=== PATIENT | female | born 1995 | race Caucasian/White ===

== ENCOUNTER 2025-06-02 03:03 | Inpatient (IN) | payer BC ==
[2025-06-02] MEDS ORDERED: Methylergonovine 0.2 MG/ML VIAL IM PRN (03:41)
[2025-06-02] MEDS ORDERED: Diphenoxylate HCl/Atropine Tablet PO PRN ×2 (03:41)
[2025-06-02] MEDS ORDERED: Carboprost 250 MCG/ML AMP IM PRN (03:41)
[2025-06-02] MEDS ORDERED: Ondansetron PF 4 MG/2 ML Vial IVP PRN (03:41)
[2025-06-02] MEDS ORDERED: Ibuprofen 800 MG TAB PO PRN (03:41)
[2025-06-02] MEDS ORDERED: Lidocaine 1% (PF) 30 ML VIAL SC PRN (03:41)
[2025-06-02] MEDS ORDERED: Tranexamic Acid 1,000 MG/10 ML VIAL IVP PRN (03:41)
[2025-06-02] MEDS ORDERED: Oxytocin 30 units/NS 500 ML 500 ML IV SCH (03:45)
[2025-06-02 03:55] LABS: Hematocrit 39.7 % (34.9-44.5); Hemoglobin 13.8 g/dL (12.0-15.5); Mean Corpuscular Hemoglobin 29.7 pg (27.0-33.0); Mean Corpuscular Volume 85.4 fL (81.6-98.3); Platelet Count 260 10x3/uL (150-450); Red Blood Cell (RBC) Count 4.65 10x6/uL (3.90-5.03); White Blood Cell (WBC) Count 12.73 10x3/uL (3.5-10.5)
[2025-06-02 04:37] LABS: Syphilis Antibody Index 0.10 S/CO (<1.00 Non-Reactive)
[2025-06-02 04:38] LABS: Hep B Surf Ag - L&D Non-Reactive S/CO (NonReactive)
[2025-06-02] MEDS ORDERED: Preparation H Ointment 28 GM TUBE PR PRN (05:00)
[2025-06-02] MEDS ORDERED: Milk Of Magnesia 30 ML UDCUP PO PRN (05:00)
[2025-06-02] MEDS ORDERED: Lanolin Ointment 7 GM TUBE TOP PRN (05:00)
[2025-06-02] MEDS ORDERED: diphenhydrAMINE 25 MG CAP PO PRN (05:00)
[2025-06-02] MEDS ORDERED: Benzocaine-Menthol 82.5 ML CAN TOP PRN (05:00)
[2025-06-02] MEDS ORDERED: Boostrix 0.5 ML (Tdap) VIAL (>/=7 yrs of age) IM ONE (05:00)
[2025-06-02 05:22] VITALS: BMI 31.4
[2025-06-02] MEDS: hydrALAZINE 20 MG/ML VIAL SLOW IVP PRN (05:31)
[2025-06-02] MEDS: Magnesium Sulfate 20 gm/500 ml 20 GM/500 ML BAG ONE (05:41)
[2025-06-02] MEDS ORDERED: Calcium Gluc 4.6 MEQ/10 ML (100 MG/ML) SLOW IVP PRN (06:00)
[2025-06-02] MEDS ORDERED: hydrALAZINE 20 MG/ML VIAL SLOW IVP PRN ×2 (06:00)
[2025-06-02] MEDS: NIFEdipine XL 30 MG ER.TAB PO SCH (12:13)
[2025-06-02] MEDS: Ibuprofen 800 MG TAB PO SCH (13:12)
[2025-06-02] MEDS: Magnesium Sulfate 20 gm/500 ml 20 GM/500 ML BAG IVPB PRN (14:32)
[2025-06-02] MEDS: Oxytocin 30 units/NS 500 ML 500 ML ONE (19:27)
[2025-06-02] MEDS: Ferrous Sulfate 325 MG TAB PO SCH (19:27)
[2025-06-02] MEDS: Magnesium Sulfate 20 gm/500 ml 4 GM/100 ML BAG IVPB ONE (19:27)
[2025-06-03] MEDS: Acetaminophen 500 MG TAB PO PRN (00:03)
[2025-06-03 00:50] LABS: Magnesium 6.3 mg/dL (1.6-2.6)
[2025-06-03 06:06] LABS: Hematocrit 38.8 % (34.9-44.5); Hemoglobin 13.1 g/dL (12.0-15.5); Mean Corpuscular Hemoglobin 30.0 pg (27.0-33.0); Mean Corpuscular Volume 88.8 fL (81.6-98.3); Platelet Count 224 10x3/uL (150-450); Red Blood Cell (RBC) Count 4.37 10x6/uL (3.90-5.03); White Blood Cell (WBC) Count 12.82 10x3/uL (3.5-10.5)
[2025-06-03 08:00] LABS: ALT (SGPT) 14 U/L (Less than 34); AST (SGOT) 35 U/L (11-34); Albumin 3.0 g/dL (3.1-4.5); Alkaline Phosphatase 108 U/L (40-110); Anion Gap 13 mmol/L (10-20); BUN (Urea Nitrogen) 8 mg/dL (7.0-18.7); Bilirubin, Total 0.1 mg/dL (0.3-1.2); Calc. Creatinine Clearance 163 mL/min (70-130); Calcium 7.0 mg/dL (7.8-10.44); Carbon Dioxide 20 mmol/L (22-29); Chloride 105 mmol/L (98-107); Globulin 3.9 g/dL (2.4-3.5); Glucose 83 mg/dL (70-105); Potassium 3.9 mmol/L (3.5-5.1); Sodium 134 mmol/L (136-145)
[2025-06-03] MEDS: NIFEdipine XL 30 MG ER.TAB PO SCH (08:54)
[2025-06-04 17:06] VITALS: BP 128/59; TEMP 98.3
== END 2025-06-04 16:45 | disposition home or self-care (01) | DRG 807 ==
LOC: CSHLD/OP 03:03 → CSHLD 03:42 → CSHPP 06-03 06:03
PROVIDERS: ADMIT Student in an Organized Health Care Education/Training Program; ATTEND Student in an Organized Health Care Education/Training Program
PROC: 10E0XZZ Delivery of Products of Conception, External Approach (ICD-10-PCS; principal; 2025-06-02)
DX: O14.14 Severe pre-eclampsia complicating childbirth (principal); Z37.0 Single live birth; O99.52 Diseases of the respiratory system complicating childbirth; Z3A.38 38 weeks gestation of pregnancy; O34.03 Maternal care for unspecified congenital malformation of uterus, third trimester
CPT/HCPCS: 36415; 80053; 83735; 85027; 86780; 86850; 86900; 86901; 87340; 88307; 99285; J0360; J3475